=== PATIENT | male | born 1980 | race Caucasian/White ===

== ENCOUNTER 2023-02-10 18:06 | Emergency (ER) | payer OTHER, SELFPAY ==
[2023-02-10 18:13] VITALS: BP 144/90; PULSE 104; RESP 16; TEMP 36.6; O2SAT 96; BMI 28.2
--- NOTE | 2023-02-10 18:43 | ED.GENADULT ---
HPI - General Adult General Date Seen: 02/10/23 Chief complaint: Laceration/Wound Stated complaint: cut on hand Time Seen by Provider: 02/10/23 18:17 Source: patient Mode of arrival: ambulatory Limitations: no limitations History of Present Illness HPI narrative: Patient is a 42-year-old male who sustained a laceration to his left hand while deer hunting, using a deer knife. He is not exactly sure what happened if the deer kicked out at him or what made the knife slip. He denies numbness or loss of function. Tetanus is up-to-date. Related Data Home Medications Medication Instructions Recorded Confirmed No Known Home Medications 02/10/23 02/10/23 Allergies Allergy/AdvReac Type Severity Reaction Status Date / Time No Known Drug Allergies Allergy Verified 02/10/23 18:12 PFSH PFS Social History Smoking Status: Never smoker How often do you have a drink containing alcohol: monthly or less AUDIT-C Alcohol total score: 1 Non-prescribed substance use: denies use Exam Narrative: Exam Narrative: Vital signs reviewed In general, alert, nontoxic male. Extremities: Examination of the left hand shows a pair of lacerations by a small isthmus of skin at the webspace of the thumb and 2nd finger dorsally. The longer of the two is about 4 cm and the shorter is about 1 cm. Bleeding is controlled. Sensation is intact distally, he has intact flexion and extension as well as opposition and abduction of the thumb and index finger. Const: Vital Signs, click to edit/add: Vital Signs - 24 hr 02/10/23 18:13 Temperature 97.9 F Pulse Rate [Pulse Oximeter] 104 H Respiratory Rate 16 Blood Pressure [Ri ght Upper Arm] 144/90 H Pulse Oximetry 96 Oxygen Delivery Me thod Room Air Course Course ED Course: Procedure note: Wound was anesthetized using lidocaine with epinephrine, explored, there was laceration of the muscle belly but the tendon was visualized and was intact. There was some arterial bleeding that I tied off with 5 0 Vicryl, I placed an additional deep suture to bring the muscle belly together. Hemostasis was achieved and then I closed the skin using 5 0 nylon. Fourteen stitches total were placed, 10 in the larger laceration and four in the smaller. He tolerated all this well. A dressing will be applied and he stable for discharge. He tells me that he plans to take stitches out himself, offered that clinic can certainly do this. Return any time for signs of infection, otherwise suture removal in 10 days. Vital Signs Vital signs: Initial Vital Signs Temperature 97.9 F 02/10/23 18:13 Temperature Source Temporal Artery Scan 02/10/23 18:13 Pulse Rate 104 H 02/10/23 18:13 Pulse Rhythm Regular 02/10/23 18:13 Respiratory Rate 16 02/10/23 18:13 Blood Pressure 144/90 H 02/10/23 18:13 Blood Pressure Mean 108 H 02/10/23 18:13 Blood Pressure Position Supine 02/10/23 18:13 Pulse Oximetry 96 02/10/23 18:13 Oxygen Delivery Method Room Air 02/10/23 18:13 Vital Signs Temperature 97.9 F 02/10/23 18:13 Pulse Rate 104 H 02/10/23 18:13 Respiratory Rate 16 02/10/23 18:13 Blood Pressure 144/90 H 02/10/23 18:13 Pulse Oximetry 96 02/10/23 18:13 Oxygen Delivery Method Room Air 02/10/23 18:13 Temperature 97.9 F 02/10/23 18:13 Pulse Rate 104 H 02/10/23 18:13 Respiratory Rate 16 02/10/23 18:13 Blood Pressure 144/90 H 02/10/23 18:13 Pulse Oximetry 96 02/10/23 18:13 Oxygen Delivery Method Room Air 02/10/23 18:13 Discharge Plan Discharge Clinical Impression: Laceration of hand, left Patient Disposition: Home, Self-Care Condition: Improved Instructions: Laceration (DC) Additional Instructions: Return for signs of wound infection. Suture removal in about 10 days. Fourteen stitches were placed today. Prescriptions: No Action No Known Home Medications Stand Alone Forms: [facility] Info Instructions
== END 2023-02-10 20:24 | disposition home or self-care (01) ==
LOC: ED 20:23
PROVIDERS: Emergency Provider Emergency Medicine
DX: S61.412A Laceration without foreign body of left hand, initial encounter (principal); W26.0XXA Contact with knife, initial encounter
CPT/HCPCS: 12002; 99283; 99284